=== PATIENT | female | born 1950 | race African-American/Black ===

== ENCOUNTER 2019-04-14 07:26 | Observation (INO) | payer MEDICARE ==
[~2019-04-14] VITALS: Ht 154.9 cm; Wt 88.0 kg
[~2019-04-14 07:26] MED LIST: AMLODIPINE BES2.5 MG PO; ATORVASTATIN PO; PIOGLITAZONE PO; ROPIVACAINE 246.25 MG, EPINEPHRINE HCL 1:1000 1ML 0.5 MG, CLONIDINE HCL 0.08 MG, KETORO... INJ ONE; TRADJENTA5 MG; TYLENOL PO; VITAMIN D3 PO
[2019-04-14] MEDS ORDERED: CEFAZOLIN SOD 1 GM/NS 50ML 100 ML IV ONE (07:41)
--- OUTSIDE RECORDS SUMMARY | 2019-04-14 07:42 | XMS REPORT | Clinical Summary ---
Author Author [facility] Organization [facility] Address Unknown Phone Unavailable Care Team Providers Care Director [facility] Name Role Phone Orlando Jones MD PCP Allergies Comments Active Allergy Reactions Severity Noted Date Iodine Hives 08/19/2017 Dizziness Tramadol-Acetaminophen Other (See 08/19/2017 Comments) Medications End Date Status Medication Sig Dispensed Refills Start Date Active JANUVIA 100 mg tablet 0 8 Active spironolacton-hydrochloro 0 thiaz (ALDACTAZIDE) 25-25 8 mg per tablet Active atorvastatin (LIPITOR) 40 Take 40 mg by 0 MG tablet mouth daily. Active glipiZIDE (GLUCOTROL) 5 Take 5 mg by 0 MG tablet mouth 2 (two) times a day before meals. Active lisinopril Take 40 mg by 0 (PRINIVIL,ZESTRIL) 40 mg mouth daily. tablet Active valsartan (DIOVAN) 320 MG Take 320 mg 0 tablet by mouth daily. Active cyanocobalamin (VITAMIN Take 1,000 0 B-12) 1000 MCG tablet mcg by mouth daily. Active calcium carbonate-vitamin Take 1 tablet 0 D3 500 mg-200 unit per by mouth 2 tablet (two) times a day with meals. Active pioglitazone (ACTOS) 15 Take 15 mg by 0 MG tablet mouth daily. 03/11/2019 Discontinued (Stop Taking at Discharge) metFORMIN (GLUCOPHAGE) 0 850 mg tablet 8 05/04/2018 HYDROcodone-acetaminophen Take 1 tablet 15 tablet 0 (NORCO) 10-325 mg per by mouth 8 tablet every 6 (six) hours as needed for moderate pain for up to 5 days. Max Daily Amount: 4 tablets 09/16/2018 benzonatate (TESSALON) Take 1 21 capsule 0 100 MG capsule capsule (100 9 mg total) by mouth every 8 (eight) hours for 30 days. 09/16/2018 ibuprofen (ADVIL,MOTRIN) Take 1 tablet 30 tablet 0 600 MG tablet (600 mg 9 total) by mouth every 6 (six) hours as needed for moderate pain for up to 30 days. 08/27/2018 amoxicillin-pot Take 1 tablet 20 tablet 0 clavulanate (AUGMENTIN) by mouth 9 875-125 mg per tablet every 12 (twelve) hours for 10 days. 08/17/2018 Discontinued (Alternate therapy) acetaminophen-codeine Take 1-2 10 tablet 0 (TYLENOL WITH CODEINE #3) tablets by 9 300-30 mg per tablet mouth every 6 (six) hours as needed for moderate pain for up to 10 days. Active Problems Problem Noted Date Chest pain 03/10/2019 Acute renal injury 04/09/2018 MELIDA (acute kidney injury) 04/07/2018 Encounters Care Team Description Date Type Specialty Simón Rock MD Left heart cath w lv gram cors [00609 (CPT)] 03/11/2019 Surgery Procedural Cardiology 03/11/2019 Travel Alireza Nova MD Allencherril, Paul Joseph, MD Chest pain, unspecified type (Primary Dx) 03/10/2019 Emergency General Internal Medicine - 03/11/2019 Morgan Payne MD Upper respiratory tract infection, unspecified type (Primary Dx); Acute sinusitis, recurrence not specified, unspecified location; Chronic bilateral back pain, unspecified back location 08/17/2018 Emergency Emergency Medicine Chuy Rodriguez DO Post-operative pain (Primary Dx); Radicular pain of both lower extremities 04/29/2018 Emergency Emergency Medicine Nelson Pelletier Jr., MD Li, MD Pearl Koroma Esteban N., MD MELIDA (acute kidney injury) (Primary Dx); Right lower quadrant abdominal pain; Chronic cholecystitis 04/07/2018 [facility] General Internal Medicine - Encounter 04/13/2018 after 04/13/2018 Family History Relation Name Status Comments Father Mother Social History Date Tobacco Use Types Packs/Day Years Used Never Smoker Smokeless Tobacco: Never Used Drinks/Week oz/Week Comments Alcohol Use occassionally very rarely No Sex Assigned at Date Recorded Not on file Industry Job Start Date Occupation Not on file Not on file Not on file Travel End Travel History Travel Start 02/27/2019 Mukul 02/18/2019 Last Filed Vital Signs Reading Time Taken Comments Vital Sign 143/67 03/11/2019 2:53 PM CDT Blood Pressure 68 03/11/2019 2:53 PM CDT Pulse 35.6 C (96.1 F) 03/11/2019 10:30 AM CDT Temperature 18 03/11/2019 2:30 PM CDT Respiratory Rate 97% 03/11/2019 2:30 PM CDT Oxygen Saturation - - Inhaled Oxygen Concentration 86.2 kg (190 lb) 03/11/2019 12:51 AM CDT Weight 154.9 cm (5' 1") 03/11/2019 12:51 AM CDT Height 35.9 03/11/2019 12:51 AM CDT Body Mass Index Plan of Treatment Health Maintenance Due Date Last Done Comments BREAST CANCER SCREENING 2001 COLONOSCOPY SCREENING 2001 SHINGLES VACCINES (#1) 2001 65+ PNEUMOCOCCAL VACCINE 01/13/2016 (1 of 2 - PCV13) INFLUENZA VACCINE 02/20/2019 Implants Device Identifier Shelf Expiration Date Model / Serial / Lot Implanted Type Area Manufactur er 11/19/2020 [id number] / / [id number] Device Vasclr Clsr Baln Cath 10ml Cardiovasc N/A: N/A ACCESS Lkng Syr 5fr Quintana Mynxgrip - ular CLOSURE [id number] [employer]plants [employer] Implanted: 03/11/2019 at [facility] (Quantity not on file) Procedures Comments Procedure Name Priority Date/Time Associated Diagnosis POC GLUCOSE Routine 03/11/2019 4:06 PM CDT CV LEFT HEART CATH LV Routine 03/11/2019 GRAM WITH CORS 1:12 PM CDT POC GLUCOSE Routine 03/11/2019 10:30 AM CDT POC GLUCOSE Routine 03/11/2019 6:56 AM CDT POC GLUCOSE Routine 03/11/2019 12:53 AM CDT TROPONIN Timed 03/10/2019 11:24 PM CDT XR CHEST 1 VW PORTABLE STAT 03/10/2019 9:52 PM CDT ECG ED PRELIMINARY Routine 03/10/2019 INTERPRETATION 9:31 PM CDT TROPONIN Timed 03/10/2019 7:22 PM CDT ESTIMATED GFR STAT 03/10/2019 5:09 PM CDT B NATRIURETIC PEPTIDE STAT 03/10/2019 5:09 PM CDT TROPONIN STAT 03/10/2019 5:09 PM CDT COMPREHENSIVE METABOLIC STAT 03/10/2019 PANEL 5:09 PM CDT HC COMPLETE BLD COUNT STAT 03/10/2019 W/AUTO DIFF 5:09 PM CDT ECG 12-LEAD STAT 03/10/2019 4:28 PM CDT XR CHEST 2 VW STAT 08/17/2018 7:50 PM BLOOD SPLATTER ANALYST URINALYSIS SCREEN AND Routine 08/17/2018 MICROSCOPY, WITH REFLEX 7:14 PM BLOOD SPLATTER ANALYST TO CULTURE RESPIRATORY PATHOGEN Routine 08/17/2018 PANEL 7:14 PM BLOOD SPLATTER ANALYST STREP SCREEN CULTURE STAT 08/17/2018 7:14 PM BLOOD SPLATTER ANALYST URINE CULTURE Routine 08/17/2018 7:14 PM BLOOD SPLATTER ANALYST GROUP A STREP, RAPID Routine 08/17/2018 ANTIGEN 7:14 PM BLOOD SPLATTER ANALYST INFLUENZA ANTIGEN Routine 08/17/2018 7:14 [address] A[address] RENAL STONE PROTOCOL STAT 04/29/2018 8:48 PM CDT ESTIMATED GFR STAT 04/29/2018 7:37 PM CDT LIPASE LEVEL STAT 04/29/2018 7:37 PM CDT COMPREHENSIVE METABOLIC STAT 04/29/2018 PANEL 7:37 PM CDT HC COMPLETE BLD COUNT STAT 04/29/2018 W/AUTO DIFF 7:37 PM CDT URINALYSIS SCREEN AND STAT 04/29/2018 MICROSCOPY, WITH REFLEX 7:02 PM CDT TO CULTURE URINE CULTURE STAT 04/29/2018 7:02 PM CDT POC GLUCOSE Routine 04/13/2018 8:37 PM CDT POC GLUCOSE Routine 04/13/2018 4:06 PM CDT POC GLUCOSE Routine 04/13/2018 11:17 AM CDT POC GLUCOSE Routine 04/13/2018 6:28 AM CDT after 04/13/2018 Results * POC glucose (03/11/2019 4:06 PM CDT) Only the most recent of 8 results within the time period is included. [facility] POC glucose 161 (H) 65 - 100 mg/dL [place] Comment: [facility] Meter ID: [id number] [place] Property And Supply Officer: [facility] Specimen Performing Organization Address City/[facility] Phone Number [facility] DEPARTMENT OF [address] [phone] PATHOLOGY AND GENOMIC MEDICINE [address] * laborer bituminous paving procedure (03/11/2019 1:12 PM CDT) Specimen Narrative Performed At * Troponin (03/10/2019 11:24 PM CDT) Only the most recent of 3 results within the time period is included. [facility] Troponin <0.006 0.000 - 0.040 ng/mL [place] Comment: [facility] changed methodology effective: HOSPITAL 11/26/2018 at 10:00 am The new method has a 99th percentile cutoff of 0.040 ng/mL Specimen Plasma specimen Performing Organization Address City/[facility] Phone Number [facility] DEPARTMENT OF [address] [facility] [place] [address] PATHOLOGY AND GENOMIC MEDICINE [facility] [address] [place] [address] HOSPITAL * XR Chest 1 Vw Portable (03/10/2019 9:52 PM CDT) Specimen Narrative Performed At EXAMINATION:XR CHEST 1 VW PORTABLE QUYEN CLINICAL HISTORY: chest pain COMPARISON:08/17/2018 IMPRESSION: No radiographic evidence for acute cardiopulmonary process. Cardiomediastinal silhouette is within normal limits of size. No focal or confluent airspace consolidation is seen on this single AP plane to suggest acute pneumonia. No sizable pleural effusion. No pneumothorax identified. Right upper quadrant cholecystectomy clips. No acute osseous abnormalities are visualized. [facility]-[id number] Procedure Note Hm Interface, Radiology Results Incoming - 03/10/2019 10:01 PM CDT EXAMINATION: XR CHEST 1 VW PORTABLE CLINICAL HISTORY: chest pain COMPARISON: 08/17/2018 IMPRESSION: No radiographic evidence for acute cardiopulmonary process. Cardiomediastinal silhouette is within normal limits of size. No focal or confluent airspace consolidation is seen on this single AP plane to suggest acute pneumonia. No sizable pleural effusion. No pneumothorax identified. Right upper quadrant cholecystectomy clips. No acute osseous abnormalities are visualized. [facility]-[id number] Performing Organization Address City/State/Zipcode Phone Number [facility] [address] [place] [address] * ECG ED Preliminary Interpretation - Not an Order (03/10/2019 9:31 PM CDT) Narrative Performed At Alireza Nova MD 03/11/20194:36 PM ECG ED Preliminary Interpretation - Not an Order Performed by: Alireza Nova MD Authorized by: Alireza Nova MD ECG reviewed by ED Physician in the absence of a print designer: yes Interpretation: Interpretation: abnormal Rate: ECG rate:67 ECG rate assessment: normal Rhythm: Rhythm: sinus rhythm Ectopy: Ectopy: none QRS: QRS axis:Normal QRS intervals:Normal Conduction: Conduction: normal ST segments: ST segments:Normal T waves: T waves: normal Q waves: Q waves:III, aVF, V1, V2 and V3 * Estimated GFR (03/10/2019 5:09 PM CDT) Only the most recent of 2 results within the time period is included. Estimated GFR 60 mL/min/1.73 m2 [place] Comment: [facility] G1 >=90 Normal or high G2 60-89Mildly decreased H0x85-34 Mildly to moderately decreased G7e56-67 Moderately to severely decreased G4 15-29Severely decreased G5 <15Kidney failure The eGFR was calculated using the Chronic Kidney Disease Epidemiology Collaboration (CKD-EPI) equation. Interpretation is based on recommendations of the National Kidney Foundation-Kidney Disease Outcomes Quality Initiative (NKF-KDOQI) published in 2014. Specimen Plasma specimen Performing Organization Address City/State/Zipcode Phone Number [facility] DEPARTMENT [address] [place] [address] PATHOLOGY AND GENOMIC MEDICINE [facility] [address] [place] [address] * CBC with platelet and differential (03/10/2019 5:09 PM CDT) Only the most recent of 2 results within the time period is included. Pathologist [facility] WBC 9.3 4.2 - 11.0 k/uL [facility] RBC 4.19 4.04 - 5.86 m/uL [facility] HGB 11.7 11.5 - 15.3 g/dL [facility] HCT 38.8 34.0 - 45.0 % [facility] MCV 92.6 80.0 - 98.0 fL [facility] MCH 27.9 27.0 - 34.0 pg [facility] MCHC 30.2 (L) 31.5 - 36.5 g/dL [facility] RDW - SD 43.1 37.0 - 51.0 fL [facility] MPV 10.6 (H) 7.4 - 10.4 fL [facility] Platelet count 219 150 - 400 k/uL [facility] Nucleated RBC 0.00 /100 WBC [facility] Neutrophils 58.5 36.0 - 66.0 % [facility] Lymphocytes 31.6 24.0 - 44.0 % [facility] Monocytes 7.8 (H) 0.0 - 6.0 % [facility] Eosinophils 1.4 0.0 - 6.0 % [facility] Basophils 0.5 0.0 - 1.2 % [facility] Immature 0.2 0.0 - 1.0 % [place] granulocytes [facility] Specimen Blood Performing Organization Address City/[facility]/Zipcode Phone Number [facility] [place] [address] PATHOLOGY AND GENOMIC MEDICINE [address] * B natriuretic peptide (03/10/2019 5:09 PM CDT) [facility] BNP 46 0 - 100 pg/mL [facility] Specimen Blood Performing Organization Address City/[facility] [place] [address] PATHOLOGY AND GENOMIC MEDICINE [address] * Comprehensive metabolic panel (03/10/2019 5:09 PM CDT) Only the most recent of 2 results within the time period is included. [facility] Sodium 143 135 - 150 mEq/L [facility] Potassium 4.2 3.5 - 5.0 mEq/L [facility] Chloride 105 98 - 112 mEq/L [facility] CO2 28 24 - 31 mmol/L [facility] Anion gap 10@ANIO 7 - 15 mEq/L [facility] BUN 13 7 - 18 mg/dL [facility] Creatinine 1.10 (H) 0.50 - 0.90 mg/dL [facility] Glucose 96 65 - 100 mg/dL [facility] Calcium 9.8 8.8 - 10.2 mg/dL [facility] Protein 7.2 6.3 - 8.3 g/dL [facility] Albumin 3.4 (L) 3.5 - 5.0 g/dL [facility] A/G ratio 0.9 0.7 - 3.8 [facility] Alkaline 86 0 - 104 U/L [place] phosphatase [facility] AST 16 10 - 35 U/L [facility] ALT 10 5 - 50 U/L [facility] Total bilirubin <0.3 0.2 - 1.2 mg/dL [facility] Specimen Plasma specimen Performing Organization Address City/[facility] Phone Number [facility] DEPARTMENT OF [address] [place] [address] PATHOLOGY AND GENOMIC MEDICINE [facility] [address] * ECG 12 lead (03/10/2019 4:28 PM CDT) Ventricular 67 [facility] rate Atrial rate 67 [facility] NC interval 182 [facility] QRSD interval 60 [facility] QT interval 386 [facility] QTC interval 407 [facility] P axis 1 39 [facility] QRS axis 1 -9 [facility] T wave axis 16 [facility] EKG impression Normal sinus rhythm with sinus H MUSE arrhythmia-Inferior infarct , age undetermined-Anteroseptal infarct (cited on or before 06-APR-2014)-Abnormal ECG-In automated comparison with ECG of 07-APR-2018 13:39,-Inferior infarct is now present- Specimen Narrative Performed At Performing Organization Address [facility] Phone Number [facility] MUSE [address] [place] [address] * XR Chest 2 Vw (08/17/2018 7:50 PM BLOOD SPLATTER ANALYST) Specimen Narrative Performed At EXAMINATION:XR CHEST 2 VW HM RADIANT CLINICAL HISTORY:pain TECHNIQUE:XR CHEST 2 VW COMPARISON:Chest radiograph dated 08/19/2017 FINDINGS: Lines/tubes:None. Heart and mediastinum:There is mild cardiomegaly.There is mild ectasia of the thoracic aortic contour. Lungs:There is minimal atelectasis/scarring at the lung bases.There is no focal consolidation. There is no evidence of pulmonary edema. Pleura:There is no pleural effusion. There is no pneumothorax. Bones and Soft Tissues:There is mild demineralization and degenerative change of the visualized skeleton. There is no acute or suspicious osseous abnormality. IMPRESSION: No acute cardiopulmonary abnormality. [facility]-[id number] Procedure Note Interface, Radiology Results Incoming - 08/17/2018 8:03 PM BLOOD SPLATTER ANALYST EXAMINATION: XR CHEST 2 VW CLINICAL HISTORY: pain TECHNIQUE: XR CHEST 2 VW COMPARISON: Chest radiograph dated 08/19/2017 FINDINGS: Lines/tubes: None. Heart and mediastinum: There is mild cardiomegaly. There is mild ectasia of the thoracic aortic contour. Lungs: There is minimal atelectasis/scarring at the lung bases. There is no focal consolidation. There is no evidence of pulmonary edema. Pleura: There is no pleural effusion. There is no pneumothorax. Bones and Soft Tissues: There is mild demineralization and degenerative change of the visualized skeleton. There is no acute or suspicious osseous abnormality. IMPRESSION: No acute cardiopulmonary abnormality. [facility]-[id number] Performing Organization Address [facility] Phone Number [facility] [address] [place] [address] * Respiratory pathogen panel (08/17/2018 7:14 PM BLOOD SPLATTER ANALYST) [facility] Respiratory Negative for all pathogens [place] pathogen panel tested: [facility] Negative for Adenovirus HOSPITAL Negative for Coronavirus HKU1 Negative for Coronavirus NL63 Negative for Coronavirus 229E Negative for Coronavirus OC43 Negative for Human Metapneumovirus Negative for Rhinovirus/Enterovirus Negative for Influenza A Negative for Influenza A/H1 Negative for Influenza A/H3 Negative for Influenza A/H1-2009 Negative for Influenza B Negative for Parainfluenza Virus 1 Negative for Parainfluenza Virus 2 Negative for Parainfluenza Virus 3 Negative for Parainfluenza Virus 4 Negative for Respiratory Syncytial Virus Negative for Bordetella pertussis Negative for Chlamydophila pneumoniae Negative for Mycoplasma pneumoniae This real-time PCR assay detects the presence of nucleic acids (RNA or DNA) for the respiratory pathogens listed. A result of "Not-detected" does not exclude the possibility of the presence of one or more pathogens at concentrations less than the detectable limits of the assay. Comment: Specimen Information Specimen Source: Nares Specimen Site: Right Specimen Nares - Right Performing Organization Address [facility] Phone Number [facility] DEPARTMENT [address] [address] PATHOLOGY AND GENOMIC MEDICINE [facility] [address] [place] [address] HOSPITAL * Urinalysis screen and microscopy, with reflex to culture (08/17/2018 7:14 PM BLOOD SPLATTER ANALYST) Only the most recent of 2 results within the time period is included. Specimen site Clean catch [facility] Color, UA Yellow [facility] Appearance, UA Clear [facility] Specific 1.016 1.001 - 1.035 [place] gravity, [facility] pH, UA 6.0 5.0 - 8.[address] [facility] Protein, UA Negative Negative [facility] Glucose, UA Negative Negative [facility] Ketones, UA Negative Negative [facility] Bilirubin, UA Negative Negative [facility] Blood, UA Small (A) Negative [facility] Nitrite, UA Negative Negative [facility] Urobilinogen, 2.0 (A) <2.0 [facility] Leukocyte Negative Negative [place] esterase, [facility] Epithelial Few /HPF [place] cells, [facility] WBC, UA <1 0 - 5 /HPF [facility] RBC, UA 4 0 - 5 /HPF [facility] Bacteria, UA None seen None seen [facility] Yeast, UA None seen [facility] Yeast with None seen [place] [facility] Specimen Urine Performing Organization Address City/State/Zipcode Phone Number [facility] [address] [place] [address] PATHOLOGY AND GENOMIC MEDICINE [address] [place], [place] [id number] [place] [address] * Group A strep, rapid antigen (08/17/2018 7:14 PM BLOOD SPLATTER ANALYST) Group A strep, Negative for Group A [place] rapid antigen Streptococcus [facility]. [facility] result Comment: [facility] Specimen Information HOSPITAL Specimen Source: Throat Specimen Site: Not otherwise specified Specimen Throat - Not otherwise specified Performing Organization Address City/State/Zipcode Phone Number [facility] DEPARTMENT OF [address] [phone] PATHOLOGY AND GENOMIC MEDICINE [facility] [address] * Influenza antigen (08/17/2018 7:14 PM BLOOD SPLATTER ANALYST) Pathologist [facility] Influenza Negative for Influenza A/B [place] antigen antigen. [facility] Comment: [facility] Specimen Information HOSPITAL Specimen Source: Nasopharyngeal Specimen Site: Right Specimen Nasopharyngeal - Right Performing Organization Address [facility] Phone Number [facility] DEPARTMENT OF [address] [place] [address] PATHOLOGY AND GENOMIC MEDICINE [place] [address] [address] * Urine culture (08/17/2018 7:14 PM BLOOD SPLATTER ANALYST) Only the most recent of 2 results within the time period is included. Pathologist [facility] Urine culture SEE COMMENTComment: [place] Bacteriuria screen negative. [facility] Specimen Urine Performing Organization Address [facility] Phone Number [facility] [address] [place] [address] PATHOLOGY AND GENOMIC MEDICINE [place] [phone] * Strep screen culture (08/17/2018 7:14 PM BLOOD SPLATTER ANALYST) [facility] Strep screen No beta hemolytic Streptococci [place] culture isolate isolated [facility] Comment: HOSPITAL Specimen Information Specimen Source: Throat Specimen Site: Not otherwise specified Specimen Throat - Not otherwise specified Performing Organization Address City/[facility]/Zipcode Phone Number [facility] DEPARTMENT [address] [place] [address] PATHOLOGY AND GENOMIC MEDICINE [address] * CT Renal Stone Protocol (04/29/2018 8:48 PM CDT) Specimen Narrative Performed At EXAMINATION:CT RENAL STONE PROTOCOL [facility] CLINICAL HISTORY:abdominal pain post opallergic to iodine TECHNIQUE: Multiple axial images of the abdomen and pelvis were obtained without intravenous administration of iodinated contrast. Sagittal and coronal computerized reformatted images were also obtained. The lack of intravenous contrast reduces the sensitivity of detecting solid organ disease. CT imaging was performed with iterative reconstruction technique and/or automated exposure control to reduce radiation dose. COMPARISON:04/07/[address] abdomen and pelvis FINDINGS: The lung bases are clear. No free intraperitoneal air or fluid. 7.4 mm nodule inferior aspect right breast unchanged. Abdomen: Liver grossly unremarkable. Spleen normal size. Benign calcified splenic granulomata Adrenal glands normal size. Cholecystectomy clips present. Pancreas normal. Kidneys grossly normal in size. No obvious mass. No renal calculi. Mild renal pelvic fullness on the left unchanged. No obstructing calculus seen however. Abdominal aorta atherosclerotic. No abdominal aortic aneurysm. Nonspecific 2.5 mm interaortocaval node at the level of the right renal vein unchanged. Scattered fecal material throughout the colon. No obstruction. No diverticulitis the abdomen. Normal appendix at abdominal pelvic junction on the right. Terminal ileum grossly unremarkable Pelvis: Bladder grossly unremarkable. Phleboliths in the pelvis. No pelvic mass. No adenopathy. No free fluid. No abdominal wall hernia. Benign calcified granuloma just deep to the rectus musculature on the right unchanged. Mild degenerative changes throughout the spine IMPRESSION: No obstructing tract calculus. Normal appendix. Minimal renal pelvic fullness on the left unchanged. Dense atherosclerosis. No bowel obstruction or distention. No diverticulitis [facility]-[id number] Procedure Note [facility], Radiology Results Incoming - 04/29/2018 9:00 PM CDT EXAMINATION: CT RENAL STONE PROTOCOL CLINICAL HISTORY: abdominal pain post op allergic to iodine TECHNIQUE: Multiple axial images of the abdomen and pelvis were obtained without intravenous administration of iodinated contrast. Sagittal and coronal computerized reformatted images were also obtained. The lack of intravenous contrast reduces the sensitivity of detecting solid organ disease. CT imaging was performed with iterative reconstruction technique and/or automated exposure control to reduce radiation dose. COMPARISON: 04/07/[address] abdomen and pelvis FINDINGS: The lung bases are clear. No free intraperitoneal air or fluid. 7.4 mm nodule inferior aspect right breast unchanged. Abdomen: Liver grossly unremarkable. Spleen normal size. Benign calcified splenic granulomata Adrenal glands normal size. Cholecystectomy clips present. Pancreas normal. Kidneys grossly normal in size. No obvious mass. No renal calculi. Mild renal pelvic fullness on the left unchanged. No obstructing calculus seen however. Abdominal aorta atherosclerotic. No abdominal aortic aneurysm. Nonspecific 2.5 mm interaortocaval node at the level of the right renal vein unchanged. Scattered fecal material throughout the colon. No obstruction. No diverticulitis the abdomen. Normal appendix at abdominal pelvic junction on the right. Terminal ileum grossly unremarkable Pelvis: Bladder grossly unremarkable. Phleboliths in the pelvis. No pelvic mass. No adenopathy. No free fluid. No abdominal wall hernia. Benign calcified granuloma just deep to the rectus musculature on the right unchanged. Mild degenerative changes throughout the spine IMPRESSION: No obstructing tract calculus. Normal appendix. Minimal renal pelvic fullness on the left unchanged. Dense atherosclerosis. No bowel obstruction or distention. No diverticulitis [id number] Performing Organization Address City/State/Zipcode Phone Number [facility] [address] [place] [address] * Lipase level (04/29/2018 7:37 PM CDT) Lipase 41 13 - 60 U/L [facility] DEPARTMENT OF PATHOLOGY AND GENOMIC MEDICINE Specimen Plasma specimen Performing Organization Address City/State/Zipcode Phone Number [facility] DEPARTMENT OF [address] [place] [address] PATHOLOGY AND GENOMIC MEDICINE after 04/13/2018 Insurance Type Payer Benefit Subscriber ID Effective Phone Address Plan / Dates Group HMO TEXANPLUS TEXANPLUS xxxxxxxxx 2018-P MCR resent Advance Directives For more information, please contact: [phone] Patient Machinist Job Setter Explanation Type Date Recorded Advance Directives, 08/17/2018 8:11 PM Living Will and Medical Power of Software Administrator Advance Directives, 08/19/2017 11:28 AM Living Will and Medical Power of Software Administrator Advance Directives, 04/07/2018 1:27 PM Living Will and Medical Power of Software Administrator Advance Directives, 04/29/2018 2:09 PM Living Will and Medical Power of Software Administrator Advance Directives, 08/17/2018 7:49 PM Living Will and Medical Power of Software Administrator Advance Directives, 03/10/2019 10:03 PM Living Will and Medical Power of Software Administrator
[2019-04-14] MEDS ORDERED: VANCOMYCIN HCL 1,000 MG ONE (07:56)
[2019-04-14] MEDS ORDERED: SODIUM CHLORIDE 0.9% 500ML 500 ML ONE (07:56)
[2019-04-14] MEDS ORDERED: TRANEXAMIC ACID 1,000 MG/10 ML ML ONE (07:56)
[2019-04-14] MEDS ORDERED: BACITRACIN 50,000 UNIT VIAL ONE (07:57)
[2019-04-14] MEDS ORDERED: GABAPENTIN 300 MG CAP ONE (08:01)
[2019-04-14] MEDS ORDERED: CELECOXIB 200 MG CAP ONE (08:01)
[2019-04-14] MEDS ORDERED: DEXAMETHASONE SOD PHOS 10 MG/1 ML VIAL ONE (08:01)
[2019-04-14] MEDS ORDERED: PROMETHAZINE HCL (IM) 25 MG/ML VIAL INJ PRN (10:15)
[2019-04-14] MEDS ORDERED: HYDROCODONE/APAP 5MG-325MG TAB PO PRN (10:15)
[2019-04-14] MEDS ORDERED: DOCUSATE SODIUM 100 MG CAP PO PRN (10:15)
[2019-04-14] MEDS ORDERED: ACETAMINOPHEN 650 MG SUPP PR PRN (10:15)
[2019-04-14] MEDS ORDERED: ZOLPIDEM TARTRATE 5 MG TAB PO PRN (10:15)
[2019-04-14] MEDS ORDERED: DIPHENHYDRAMINE HCL INJ 50 MG/ML VIAL IM/IV PRN (10:15)
[2019-04-14] MEDS ORDERED: KETOROLAC TROMETHAMINE 30 MG/ML VIAL IV PRN (10:15)
[2019-04-14] MEDS ORDERED: ONDANSETRON HCL INJ 2MG/ML 2ML 2 MG/ML VIAL IV PRN (10:15)
[2019-04-14] MEDS ORDERED: HYDROMORPHONE 1MG/1ML INJ ONE (10:43)
--- OUTSIDE RECORDS SUMMARY | 2019-04-14 11:54 | XMS REPORT | Clinical Summary ---
Author Author Hernandez Jain Organization Ng [facility] Address Unknown Phone Unavailable Care Team Providers Care Tilt Wall Supervisor Name Role Phone Orlando Jones MD PCP [...] Left heart cath w lv gram cors [53841 (CPT)] 03/11/2019 Surgery Procedural Cardiology 03/11/2019 Travel [...] lower quadrant abdominal pain; Chronic cholecystitis 04/07/2018 [facility] General Internal Medicine - Encounter 04/13/2018 [...] Lot Implanted Type Area Manufactur er 11/19/2020 [id number] / / [id number] Device Vasclr Clsr Baln Cath 10ml Cardiovasc N/A: N/A ACCESS Lkng Syr 5fr Quintana Mynxgrip - ular CLOSURE [id number] Implants INC Implanted: 03/11/2019 at [facility] (Quantity not on file) Procedures Comments [...] CHEST 2 VW STAT 08/17/2018 7:50 PM HIGH [employer]CHOOL FOREIGN LANGUAGE TUTOR URINALYSIS SCREEN AND Routine 08/17/2018 MICROSCOPY, WITH REFLEX 7:14 PM [employer] FORE[employer] LANGUAGE TUTOR TO CULTURE RESPIRATORY PATHOGEN Routine 08/17/2018 PANEL 7:14 PM [employer] FOREIGN LANGUAGE TUTOR STREP SCREEN CULTURE STAT 08/17/2018 7:14 PM HIGH [employer] FOREIGN LANGUAGE TUTOR URINE CULTURE Routine 08/17/2018 7:14 PM [employer] FOREIGN LANGUAGE TUTOR GROUP A STREP, RAPID Routine 08/17/2018 ANTIGEN 7:14 PM [employer] FOREIGN LANGUAGE TUTOR INFLUENZA ANTIGEN Routine 08/17/2018 7:14 PM HIGH S[employer] LANGU[employer] TUTOR CT RENAL STONE PROTOCOL STAT 04/29/2018 8:48 [...] results within the time period is included. [facility] POC glucose 161 (H) 65 - 100 mg/dL [facility] Comment: [facility] Meter ID: [id number] [place] Municipal Bond Trader: [facility] Specimen Performing Organization Address City/[facility] Phone Number [facility] DEPARTMENT OF [address] [phone] PATHOLOGY AND GENOMIC MEDICINE [address] * bolt labeler procedure (03/11/2019 1:12 PM CDT) Specimen Narrative Performed At * Troponin (03/10/2019 11:24 PM CDT) Only the most recent of 3 results within the time period is included. [facility] Troponin <0.006 0.000 - 0.040 ng/mL [facility] Comment: [facility] changed methodology effective: HOSPITAL 11/26/2018 at 10:00 am The new method has a 99th percentile cutoff of 0.040 ng/mL Specimen Plasma specimen Performing Organization Address City/[facility] Phone Number [facility] DEPARTMENT OF [address] [place] [address] PATHOLOGY AND GENOMIC MEDICINE [facility] [address] [place] [address] HOSPITAL * XR Chest 1 Vw Portable [...] clips. No acute osseous abnormalities are visualized. [facility]-[id number] Procedure Note Hm Interface, Radiology Results Incoming [...] clips. No acute osseous abnormalities are visualized. [id number] Performing Organization Address City/State/Zipcode Phone Number [facility] [address] [place] [address] * ECG ED Preliminary Interpretation - Not an Order (03/10/2019 9:31 PM CDT) Narrative Performed At Alireza Nova MD 03/11/20194:36 PM ECG ED Preliminary Interpretation - Not an Order Performed by: Alireza Nova MD Authorized by: Alireza Nova MD ECG reviewed by ED Physician in the absence of a high school foreign language tutor: yes Interpretation: Interpretation: abnormal Rate: ECG rate:67 [...] is included. Estimated GFR 60 mL/min/1.73 m2 [place] Comment: [facility] G1 >=90 Normal or high G2 60-89Mildly decreased T1g97-54 Mildly to moderately decreased O5u91-14 Moderately to severely decreased G4 15-29Severely decreased G5 <15Kidney failure The eGFR was calculated using the Chronic Kidney Disease Epidemiology Collaboration (CKD-EPI) equation. Interpretation is based on recommendations of the National Kidney Foundation-Kidney Disease Outcomes Quality Initiative (NKF-KDOQI) published in 2014. Specimen Plasma specimen Performing Organization Address City/State/Zipcode Phone Number [facility] DEPARTMENT [address] [place] [address] PATHOLOGY AND GENOMIC MEDICINE [facility] [address] [place] [address] * CBC with platelet and differential (03/10/2019 5:09 PM CDT) Only the most recent of 2 results within the time period is included. Pathologist [facility] WBC 9.3 4.2 - 11.0 k/uL [facility] RBC 4.19 4.04 - 5.86 m/uL [facility] HGB 11.7 11.5 - 15.3 g/dL [facility] HCT 38.8 34.0 - 45.0 % [facility] MCV 92.6 80.0 - 98.0 fL [facility] MCH 27.9 27.0 - 34.0 pg [facility] MCHC 30.2 (L) 31.5 - 36.5 g/dL [facility] RDW - SD 43.1 37.0 - 51.0 fL [facility] MPV 10.6 (H) 7.4 - 10.4 fL [facility] Platelet count 219 150 - 400 k/uL [facility] Nucleated RBC 0.00 /100 WBC [facility] Neutrophils 58.5 36.0 - 66.0 % [facility] Lymphocytes 31.6 24.0 - 44.0 % [facility] Monocytes 7.8 (H) 0.0 - 6.0 % [facility] Eosinophils 1.4 0.0 - 6.0 % [facility] Basophils 0.5 0.0 - 1.2 % [facility] Immature 0.2 0.0 - 1.0 % [facility] granulocytes [facility] Specimen Blood Performing Organization Address City/[facility]/Zipcode Phone Number [facility] [place] [address] PATHOLOGY AND GENOMIC MEDICINE [address] * B natriuretic peptide (03/10/2019 5:09 PM CDT) [facility] BNP 46 0 - 100 pg/mL [facility] Specimen Blood Performing Organization Address City/[facility] [place] [address] PATHOLOGY AND GENOMIC MEDICINE [address] * Comprehensive metabolic panel (03/10/2019 5:09 PM CDT) Only the most recent of 2 results within the time period is included. [facility] Sodium 143 135 - 150 mEq/L [facility] Potassium 4.2 3.5 - 5.0 mEq/L [facility] Chloride 105 98 - 112 mEq/L [facility] CO2 28 24 - 31 mmol/L [facility] Anion gap 10@ANIO 7 - 15 mEq/L [facility] BUN 13 7 - 18 mg/dL [facility] Creatinine 1.10 (H) 0.50 - 0.90 mg/dL [facility] Glucose 96 65 - 100 mg/dL [facility] Calcium 9.8 8.8 - 10.2 mg/dL [facility] Protein 7.2 6.3 - 8.3 g/dL [facility] Albumin 3.4 (L) 3.5 - 5.0 g/dL [facility] A/G ratio 0.9 0.7 - 3.8 [facility] Alkaline 86 0 - 104 U/L [facility] phosphatase [facility] AST 16 10 - 35 U/L [facility] ALT 10 5 - 50 U/L [facility] Total bilirubin <0.3 0.2 - 1.2 mg/dL [facility] Specimen Plasma specimen Performing Organization Address City/[facility] Phone Number [facility] DEPARTMENT OF [address] [place] [address] PATHOLOGY AND GENOMIC MEDICINE [facility] [address] * ECG 12 lead (03/10/2019 4:28 PM CDT) Ventricular 67 [facility] MUSE rate Atrial rate 67 [facility] MUSE OR interval 182 [facility] QRSD interval 60 [...] Specimen Narrative Performed At Performing Organization Address [facility] Phone Number [facility] MUSE [address] [place] [address] * XR Chest 2 Vw (08/17/2018 7:50 PM HIGH [employer]OL FORE[employer] LANGUAGE TUTOR) Specimen Narrative Performed At EXAMINATION:XR CHEST 2 [...] osseous abnormality. IMPRESSION: No acute cardiopulmonary abnormality. [id number] Procedure Note Interface, Radiology Results Incoming - 08/17/2018 8:03 PM H[employer] FOREIGN LANGUAGE TUTOR EXAMINATION: XR CHEST 2 VW CLINICAL HISTORY: [...] osseous abnormality. IMPRESSION: No acute cardiopulmonary abnormality. [id number] Performing Organization Address [facility] Phone Number [facility] [address] [place] [address] * Respiratory pathogen panel (08/17/2018 7:14 PM HIGH SCHOOL FOREIGN LANGUAGE TUTOR) [facility] Respiratory Negative for all pathogens [facility] pathogen panel tested: [facility] Negative for Adenovirus HOSPITAL Negative for Coronavirus [...] Specimen Nares - Right Performing Organization Address [facility] Phone Number [facility] DEPARTMENT [address] [address] PATHOLOGY AND GENOMIC MEDICINE [facility] [address] [place] [address] HOSPITAL * Urinalysis screen and microscopy, with reflex to culture (08/17/2018 7:14 PM HIGH SCHOOL FOREIGN LANGUAGE TUTOR) Only the most recent of 2 results within the time period is included. Specimen site Clean catch [facility] Color, UA Yellow [facility] Appearance, UA Clear [facility] Specific 1.016 1.001 - 1.035 [place] gravity, [facility] pH, UA 6.0 5.0 - 8.5 [facility] Protein, UA Negative Negative [facility] Glucose, UA Negative Negative [facility] Ketones, UA Negative Negative [facility] Bilirubin, UA Negative Negative [facility] Blood, UA Small (A) Negative [facility] Nitrite, UA Negative Negative [facility] Urobilinogen, 2.0 (A) <2.0 [facility] Leukocyte Negative Negative [facility] esterase, [facility] Epithelial Few /HPF [facility] cells, [facility] WBC, UA <1 0 - 5 /HPF [facility] RBC, UA 4 0 - 5 /HPF [facility] Bacteria, UA None seen None seen [facility] Yeast, UA None seen [facility] Yeast with None seen [facility] Specimen Urine Performing Organization Address City/State/Zipcode Phone Number [facility] [address] [place] [address] PATHOLOGY AND GENOMIC MEDICINE [place] [address] [place], [place] [phone] [place] [address] * Group A strep, rapid antigen (08/17/2018 7:14 PM HIGH SCHOOL FOREIGN LANGUAGE TUTOR) Group A strep, Negative for Group A [facility] rapid antigen Streptococcus antigen. [facility] result Comment: [facility] Specimen Information HOSPITAL Specimen Source: Throat Specimen Site: Not otherwise specified Specimen Throat - Not otherwise specified Performing Organization Address City/State/Zipcode Phone Number [facility] DEPARTMENT OF [address] [phone] PATHOLOGY AND GENOMIC MEDICINE [facility] [address] * Influenza antigen (08/17/2018 7:14 PM HIGH SCHOOL FOREIGN LANGUAGE TUTOR) Pathologist [facility] Influenza Negative for Influenza A/B [facility] antigen antigen. [facility] Comment: [facility] Specimen Information HOSPITAL Specimen Source: Nasopharyngeal Specimen Site: Right Specimen Nasopharyngeal - Right Performing Organization Address [facility] Phone Number [facility] DEPARTMENT OF [address] [place] [address] PATHOLOGY AND GENOMIC MEDICINE [place] [phone] [address] * Urine culture (08/17/2018 7:14 PM HIGH SCHOOL FOREIGN LANGUAGE TUTOR) Only the most recent of 2 results within the time period is included. Pathologist [facility] Urine culture SEE COMMENTComment: [facility] Bacteriuria screen negative. [facility] Specimen Urine Performing Organization Address [facility] Phone Number [facility] [address] [place] [address] PATHOLOGY AND GENOMIC MEDICINE [place] [phone] [address] * Strep screen culture (08/17/2018 7:14 PM HIGH SCHOOL FOREIGN LANGUAGE TUTOR) [facility] Strep screen No beta hemolytic Streptococci [facility] culture isolate isolated [facility] Comment: HOSPITAL Specimen Information Specimen Source: Throat Specimen Site: Not otherwise specified Specimen Throat - Not otherwise specified Performing Organization Address City/[facility]/Zipcode Phone Number [facility] DEPARTMENT [address] [place] [address] PATHOLOGY AND GENOMIC MEDICINE [address] * CT Renal Stone Protocol (04/29/2018 [...] No bowel obstruction or distention. No diverticulitis [facility]-[id number] Procedure Note [facility], Radiology Results Incoming - 04/29/2018 9:00 PM [...] No bowel obstruction or distention. No diverticulitis [id number] Performing Organization Address City/State/Zipcode Phone Number [facility] [address] [place] [address] * Lipase level (04/29/2018 7:37 PM CDT) Lipase 41 13 - 60 U/L [facility] DEPARTMENT OF PATHOLOGY AND GENOMIC MEDICINE Specimen Plasma specimen Performing Organization Address City/State/Zipcode Phone Number [facility] DEPARTMENT OF [address] [place] [address] PATHOLOGY AND GENOMIC MEDICINE after 04/13/2018 Insurance Type Payer Benefit Subscriber ID Effective Phone Address Plan / Dates Group HMO TEXANPLUS TEXANPLUS xxxxxxxxx 2018-P MCR resent Advance Directives For more information, please contact: [phone] Patient Direct Marketing Executive Explanation Type Date Recorded Advance Directives, 08/17/2018 8:11 PM Living Will and Medical Power of Cutter Operator Tile Advance Directives, 08/19/2017 11:28 AM Living Will and Medical Power of Cutter Operator Tile Advance Directives, 04/07/2018 1:27 PM Living Will and Medical Power of Cutter Operator Tile Advance Directives, 04/29/2018 2:09 PM Living Will and Medical Power of Cutter Operator Tile Advance Directives, 08/17/2018 7:49 PM Living Will and Medical Power of Cutter Operator Tile Advance Directives, 03/10/2019 10:03 PM Living Will and Medical Power of Cutter Operator Tile
[2019-04-14] MEDS ORDERED: ACETAMINOPHEN 1000 MG/100 ML IV SCH (12:00)
--- NOTE | 2019-04-14 12:03 | Diagnostic Imaging Report ---
EXAMINATION: KNEE LEFT 1-2 VIEWS INDICATION: Postoperative COMPARISON: None FINDINGS: Immediate postoperative portable AP and crosstable lateral radiographs demonstrate postoperative findings of left total knee replacement. Alignment appears anatomic. No unexpected fracture. Hardware is intact. Postoperative subcutaneous emphysema and small joint effusion. IMPRESSION: Anatomic alignment status post left total knee replacement. Signed by: Apple Doran MD on 04/14/2019 12:00 PM
--- NOTE | 2019-04-14 12:32 | Operative Report ---
DATE OF PROCEDURE: 04/14/2019 SURGEON: Jonathan Cleveland MD HYDROELECTRIC PLANT OPERATOR: Rio Murphy, certified PA. PREOPERATIVE DIAGNOSIS: Osteoarthritis of left knee. POSTOPERATIVE DIAGNOSIS: Osteoarthritis of left knee. PROCEDURE: Left total knee arthroplasty. INDICATIONS: The patient is a 69-year-old lady with longstanding left knee pain. Clinic exam and x-rays are consistent with osteoarthritis. She has failed extensive conservative management. Her options have been discussed. She would like to proceed with a left total knee replacement. The risks and benefits have been explained. All of her questions have been answered. Realistic expectations have been stressed. She states she understands and wishes to proceed. PROCEDURE IN DETAIL: The patient was brought to the operating room and placed under general anesthetic. She received prophylactic antibiotics, a regional block and tranexamic acid in the holding area. Her left lower extremity was prepped and draped in a sterile manner. A preoperative time-out was performed. The extremity was exsanguinated and a proximal tourniquet was inflated to 300 mmHg. An anterior approach with a medial parapatellar arthrotomy was performed. A small amount of clear synovial fluid was removed from the joint. Soft tissue releases were performed to bring the knee up into flexion with the patella everted. Marginal osteophytes and meniscal remnants were removed. The cruciate ligaments were sacrificed. A [employer] Persona medial congruent knee system was used throughout the case. An extramedullary cutting guide was used to resect the proximal tibia. The tibial slope was dialed in to match the existing slope. The tibial base plate was a size #C. The central fin punch was impacted and attention was directed towards the distal femur. An intramedullary cutting guide was used to resect the distal femur in 5 degrees of valgus and rotation referencing off a combination of landmarks including Whitesides line, the epicondylar axis and the posterior condyles. The femoral component was a size #5. The anterior and posterior cuts were made. Trial reductions were performed. I elected to use an 11 mm tibial insert. This provided appropriate soft tissue balancing in full extension and 90 degrees of flexion. The patella was resurfaced with a 29 mm patellar button. The thickness was checked before and after and it was right around 22 mm. Patellar tracking was noted to be concentric. The trial implants were removed. The knee was thoroughly irrigated with a shower tip pulsatile lavage. A 100 mL premixed pericapsular EVETTE injection was placed into the surrounding soft tissue. All of the bone cuts had been irrigated with a spray mixture of diluted polymyxin and vancomycin spray. The components were then cemented into place using a single mix of Palacos cement preloaded with antibiotics. Care was taken to remove extravasated cement. The wound was further irrigated while the cement cured. The arthrotomy was closed with interrupted #1 Ethibond. 500 mg of vancomycin powder was placed into the joint prior to closure. The knee was put through flexion and extension to ensure a secure closure of the arthrotomy. The skin was closed with subcuticular Vicryl and palmer. A sterile Aquacel bandage was applied. The patient was extubated and transported to the recovery room in stable condition. Blood loss was minimal. All needle and sponge counts were correct. Jonathan Cleveland MD DR/SUSANNA /[id number]
[2019-04-14] MEDS ORDERED: KETOROLAC TROMETHAMINE 30 MG/ML VIAL ONE (12:33)
--- NOTE | 2019-04-14 13:50 | NUR ---
Received patient from PACU via stretcher. AAOX3 to time, person, place. Respirations even and unlabored. Dressing to left knee clean, dry, and intact. (with ELAYNE wrap)Oriented to room. Instructed to use call light for assistance. Voiced understanding.
[2019-04-14 14:00] VITALS: BP 127/60
[2019-04-14] MEDS ORDERED: LIDOCAINE HCL 2% JELLY 5 ML TUBE ONE (14:10)
[2019-04-14] MEDS ORDERED: ONDANSETRON HCL INJ 2MG/ML 2ML 2 MG/ML VIAL ONE (14:10)
[2019-04-14] MEDS ORDERED: ROCURONIUM BROMIDE 10 MG/ML 5ML VIAL ONE (14:10)
[2019-04-14] MEDS ORDERED: DEXAMETHASONE SOD PHOS INJ 4 MG/ML VIAL ONE (14:10)
[2019-04-14] MEDS ORDERED: PROPOFOL IV EMULSION 10 MG/ML 20 ML VIAL ONE (14:10)
[2019-04-14] MEDS ORDERED: SEVOFLURANE INHAL SOLN 250 ML PEN BTL ONE (14:10)
[2019-04-14] MEDS ORDERED: VITAMIN B-121000 MCG PO (14:28)
[2019-04-14 14:30] VITALS: BP 127/60
[2019-04-14] MEDS: SODIUM CHLORIDE 0.9% 1000ML 1,000 ML IV SCH (14:43)
[2019-04-14] MEDS: HYDROCODONE/APAP 7.5MG-325MG 1 EA TAB PO PRN (14:46)
[2019-04-14] MEDS ORDERED: LIDOCAINE 2% /EPINEPHRINE 20 ML SDV INJ ONE (14:48)
[2019-04-14] MEDS ORDERED: ROPIVACAINE 0.5% 5 MG/ML 30 ML SDV ONE (14:48)
[2019-04-14] MEDS ORDERED: KETAMINE HCL INJ 50 MG/ML 10 ML VIAL ONE (14:56)
[2019-04-14] MEDS ORDERED: FENTANYL CITRATE/PF 100MCG/2 ML INJ ONE (14:56)
[2019-04-14] MEDS ORDERED: MIDAZOLAM HCL 2 MG/2 ML VIAL ONE (14:56)
[2019-04-14] MEDS ORDERED: TYLENOL 650 MG PO PRN (16:45)
[2019-04-14] MEDS ORDERED: ACETAMINOPHEN 325 MG TAB PO PRN (16:45)
[2019-04-14 16:53] VITALS: BP 119/56
[2019-04-14] MEDS: CELECOXIB 200 MG CAP PO SCH (17:08)
[2019-04-14] MEDS: CEFAZOLIN SOD 1 GM/NS 50ML 50 ML IV SCH (17:08)
[2019-04-14] MEDS: ASPIRIN 325 MG TAB PO SCH (17:08)
--- NOTE | 2019-04-14 19:10 | NUR ---
Report given to oncoming nurse of patient's status. Resting in bed, side rails upx2, call light within reach. AAOX4 to time, person, place, situation. Respirations even and unlabored. Dressing to left knee clean, dry, and intact.
[2019-04-14 20:00] VITALS: BP 126/77
--- NOTE | 2019-04-14 20:00 | NUR ---
INITIAL ASSESSMENT COMPLETE, PT IN BED, LEFT KNEE UP ON PILLOW, WRAPPED IN ELAYNE BANDAGE, CALL LIGHT IN REACH, VS STABLE, NO DISTRESS NOTED, PT ON RA - IS AT BEDSIDE, IV INFUSING, FOOT PUMP ON BILATERAL, PAIN IN LEFT KNEE, PT PLACED ON CPM AT 50, TOLERATING WELL, PAIN MEDS GIVEN, TOLD TO CALL FOR NEEDS, CONTINUE TO MONITOR
[2019-04-14] MEDS ORDERED: NON-FORMULARY MEDICATION (Amlodipine Besylate 2.5 MG) PO SCH (21:00)
[2019-04-14] MEDS: ATORVASTATIN 40 MG TAB PO SCH (21:00)
[2019-04-14] MEDS ORDERED: NON-FORMULARY MEDICATION ([Atorvastatin] 40 MG) PO SCH (21:00)
[2019-04-14] MEDS: ACETAMINOPHEN 1000 MG/100 ML IV SCH (21:00)
[2019-04-14] MEDS: AMLODIPINE BESYLATE 5 MG TAB PO SCH (21:00)
[2019-04-15] VITALS (7 sets, daily range): BP systolic 119–144; BP diastolic 52–70
--- NOTE | 2019-04-15 | NUR ---
PT IN BED, SEVERAL TIMES USES THE BEDPAN FOR URINE, CALL LIGHT IN REACH, VS STABLE, TOLD TO CALL FOR NEEDS.
[2019-04-15] MEDS: CEFAZOLIN SOD 1 GM/NS 50ML 50 ML IV SCH ×2 (01:00→09:16)
[2019-04-15] MEDS: SODIUM CHLORIDE 0.9% 1000ML 1,000 ML IV SCH (02:00)
[2019-04-15] MEDS: ACETAMINOPHEN 1000 MG/100 ML IV SCH ×2 (03:00→08:30)
[2019-04-15 05:52] LABS: HEMATOCRIT 33.1 % (34.2-44.1); HEMOGLOBIN 10.2 g/dL (12.0-16.0)
[2019-04-15] MEDS: ASPIRIN 325 MG TAB PO SCH ×2 (08:39→16:09)
[2019-04-15] MEDS: CELECOXIB 200 MG CAP PO SCH ×2 (08:39→16:09)
[2019-04-15] MEDS ORDERED: CYANOCOBALAMIN 1,000 MCG TAB PO SCH (09:00)
[2019-04-15] MEDS ORDERED: CHOLECALCIFEROL 1,000 UNIT TAB PO SCH (09:00)
[2019-04-15] MEDS ORDERED: VITAMIN D3 25 MCG PO SCH (09:00)
[2019-04-15] MEDS ORDERED: PIOGLITAZONE HCL 15 MG TAB PO SCH (09:00)
[2019-04-15] MEDS ORDERED: PIOGLITAZONE 15 MG PO SCH (09:00)
[2019-04-15] MEDS: SENNOSIDES 8.6 MG TAB PO SCH ×2 (09:22→16:10)
[2019-04-15] MEDS ORDERED: ACETAMINOPHEN 1000 MG/100 ML IV PRN ×2 (10:15→14:00)
--- NOTE | 2019-04-15 13:40 | NUR ---
ORDERS REC'D FOR HOME HEALTH AND DME PRE-ARRANGED BY CAMILA AT DR BEGUM'S OFFICE I PROVIDED PT WITH RW TO TAKE HOME DURAMEDIC'S SHEET COMPLETED, SIGNED BY KEL AND PT COPY TO PT SHEET PLACED IN PACU FILE MORALES EXPLAINED TO PT, SIGNED BY PT AND PLACED ON CHART COPY OF MORALES TO PT IN CARE TRANSITIONS FOLDER GAVE PT MY BUSINESS CARD
[2019-04-15] MEDS ORDERED: ASPIR 8181 MG PO (13:42)
--- NOTE | 2019-04-15 13:45 | NUR ---
HOME HEALTH DISCHARGE NOTE PATIENT ADDRESS WHERE SERVICE WILL BE RECEIVED: [id number] [place] [address] PATIENT CONTACT NUMBER: [phone] NAME OF [employer] COMPANY: [employer] TELEPHONE/FAX NUMBER OF [facility]: [phone] ADDRESS OF [employer]: [id number] [place] [address] SERVICES TO RECEIVE: SKILLED NURSE EVAL PT/OT EVAL ANTICIPATED DATE OF SERVICES : 04/16/19 PLEASE CALL THE COMPANY ABOVE IF YOU HAVE NOT RECEIVED A CALL TO SCHEDULE A HOME VISIT WITHIN 24 HRS OF DISCHARGE 3 IN 1 AND CPM TO BE DELIVERED TO HOME BY [employer] [facility]SE [phone]
--- NOTE | 2019-04-15 14:10 | NUR ---
Visit made by the Spiritual Care Department Pastoral Visitor, Porsha Jewell. PV provided pastoral presence, prayer, hospitality, and supportive listening. Pastoral Visitor informed pt/family of the scope of Speech Pathology Teacher Services and availability. KYREE DE JESUS Electrical Manufacturing Technician Spiritual Care Department O: [phone] Pager: [phone] ([phone] number calling from)
[2019-04-15] MEDS ORDERED: MOBIC15 MG PO (14:31)
[2019-04-15] MEDS ORDERED: HYDROCODON-ACE1 EA11 PO (14:32)
[2019-04-15] MEDS ORDERED: [UNRECOGNIZED DRUG - CODE] PO (14:33)
[2019-04-15] MEDS: HYDROCODONE/APAP 7.5MG-325MG 1 EA TAB PO PRN ×2 (14:35→20:16)
--- NOTE | 2019-04-15 18:30 | NUR ---
Patient states "I am waiting for my daughter to pick me up. She went to the hair salon."
--- NOTE | 2019-04-15 18:55 | NUR ---
Report to given to oncoming nurse of patient's status. Resting in bed, side rails upx2, call light within reach. No s/s of acute distress noted. Dressing to left knee clean, dry, and intact. Discharge instructions given to patient. Discharge assessment to be completed by oncoming nurse.
--- NOTE | 2019-04-15 19:00 | NUR ---
RECEIVED PATIENT IN BEDSIDE SHIFT REPORT. PATIENT RESTING IN BED AT THIS TIME. NO PAIN REPORTED. NO S&S OF DISTRESS NOTED. PATIENT WAITING ON DAUGHTER TO TAKE HER HOME. WILL CONTINUE CARE UNTIL SHE ARRIVES. BED LOCKED IN LOWEST POSITION, SIDE RAILS UPX2, CALL LIGHT IN REACH.
[2019-04-15] MEDS: AMLODIPINE BESYLATE 5 MG TAB PO SCH (20:16)
[2019-04-15] MEDS: ATORVASTATIN 40 MG TAB PO SCH (20:16)
--- NOTE | 2019-04-15 20:43 | NUR ---
PATIENT DISCHARGED AT THIS TIME. DISCHARGE INSTRUCTIONS GIVEN BY DAY SHIFT NURSE, PACKET PLACED IN PERSONAL ITEMS. IV REMOVED BY DAY SHIFT NURSE. PERSONAL ITEMS TAKEN BY PATIENT AND FAMILY MEMBER, INCLUDING PATIENT'S WALKER. NO QUESTIONS BY PATIENT. PATIENT LEFT IN WHEELCHAIR, ACCOMPANIED BY STAFF MEMBER, SAFELY IN CAR WITH FAMILY MEMBER.
== END 2019-04-15 20:47 | disposition home or self-care (01) ==
LOC: OR 07:26 → PACU V 10:16 → MED/SURG 13:50
PROVIDERS: ADMIT Specialist; ATTEND Specialist
DX: M17.12 Unilateral primary osteoarthritis, left knee (principal); M10.9 Gout, unspecified; Z88.8 Allergy status to other drugs, medicaments and biological substances; Z91.041 Radiographic dye allergy status; E78.5 Hyperlipidemia, unspecified; Z79.84 Long term (current) use of oral hypoglycemic drugs; E66.9 Obesity, unspecified; Z68.36 Body mass index [BMI] 36.0-36.9, adult; E11.22 Type 2 diabetes mellitus with diabetic chronic kidney disease; I12.9 Hypertensive chronic kidney disease with stage 1 through stage 4 chronic kidney disease, or unspecified chronic kidney disease; N18.9 Chronic kidney disease, unspecified
CPT/HCPCS: 27447; 36415 ×2; 73560; 82948 ×2; 85014; 85018; 86850; 86900; 86920; 97110; 97116 ×2; 97162; C1713; G0378 ×2; J0131 ×2; J0171; J0690 ×2; J1100 ×2; J1170; J1885 ×2; J2001 ×2; J2250; J2405; J2704; J2795; J3010; J3370; J7030 ×2; J7040; C1776